=== PATIENT | female | born 1970 | race Two or more races ===

== ENCOUNTER 2019-04-17 09:52 | Emergency (ER) | payer OTHER ==
[~2019-04-17] VITALS: Ht 162.6 cm; Wt 99.8 kg
[2019-04-17 10:05] VITALS: BP 141/76
== END 2019-04-17 11:55 | disposition home or self-care (01) ==
LOC: ER 09:56
DX: J30.9 Allergic rhinitis, unspecified (principal); E11.9 Type 2 diabetes mellitus without complications; I10 Essential (primary) hypertension; Z88.0 Allergy status to penicillin; Z88.6 Allergy status to analgesic agent

== ENCOUNTER 2019-10-21 18:06 | Emergency (ER) | payer OTHER ==
[~2019-10-21] VITALS: Ht 160 cm; Wt 102.1 kg
[2019-10-21 19:12] LABS: Basophils # (auto) 0 10 ^3/uL (0-0.2); Basophils % (auto) 0.3 % (0.0-2.0); Eosinophils # (auto) 0.1 10 ^3/uL (0-0.8); Eosinophils % (auto) 1.4 % (0.0-7.0); Hematocrit 43.5 % (36.0-46.0); Hemoglobin 14.5 g/dL (12.2-16.2); Lymphocytes # (auto) 3.3 10 ^3/uL (0.4-5.4); Mean Corpuscular Hemoglobin 29.2 pg (28.0-32.0); Mean Corpuscular Hgb Conc. 33.4 g/dL (32.0-36.0); Mean Corpuscular Volume 87.4 fL (80.0-100.0); Monocytes # (auto) 0.5 10 ^3/uL (0-1.3); Monocytes % (auto) 5.6 % (0.0-12.0); Neutrophils # (auto) 4.8 10 ^3/uL (1.6-8.6); Neutrophils % (auto) 54.7 % (37.0-80.0); Nucleated Red Blood Cells % 0.1 %; Platelet Count (auto) 241 10^3/uL (140-450); Red Blood Cells 4.98 10^6/uL (4.0-5.20); Red Cell Distribution Width 13.9 % (11.8-14.3); White Blood Cell 8.7 10^3/uL (4.4-10.8)
[2019-10-21 19:20] LABS: Alanine Aminotransferase 48 U/L (13-56); Albumin 3.6 g/dL (3.4-5.0); Anion Gap 8 (5-15); Aspartate Aminotransferase 45 U/L (15-37); BUN/Creatinine Ratio 13.3; Blood Urea Nitrogen 13 mg/dL (7-18); Carbon Dioxide 23 mmol/L (21-32); Chloride 103 mmol/L (98-107); GFR African American 78 mL/min; GFR Non-African American 64 mL/min; Glucose 291 mg/dL (74-106); Potassium 4.2 mmol/L (3.5-5.1); Sodium 134 mmol/L (136-145)
[2019-10-21 19:25] LABS: Alkaline Phosphatase 100 U/L (45-117); Bilirubin, Total 0.4 mg/dL (0.2-1.0); Total Protein 7.9 g/dL (6.4-8.2)
[2019-10-21 19:33] LABS: Calcium 8.9 mg/dL (8.5-10.1)
[2019-10-21 20:25] VITALS: BP 137/88
== END 2019-10-21 20:57 | disposition home or self-care (01) ==
LOC: ER 18:06
DX: M71.21 Synovial cyst of popliteal space [Baker], right knee (principal); E11.65 Type 2 diabetes mellitus with hyperglycemia; M19.90 Unspecified osteoarthritis, unspecified site; E78.5 Hyperlipidemia, unspecified; I10 Essential (primary) hypertension; Z88.0 Allergy status to penicillin; Z88.6 Allergy status to analgesic agent
CPT/HCPCS: 36415; 71046; 80053; 83880; 84484; 85025; 85379; 93005; 93970

== ENCOUNTER 2020-04-08 09:38 | Emergency (ER) | payer OTHER ==
[~2020-04-08] VITALS: Ht 160 cm; Wt 95.3 kg
[2020-04-08 09:41] VITALS: BP 147/99
[2020-04-08] MEDS ORDERED: traMADol HCL 50 MG TAB PO ONE (11:00)
== END 2020-04-08 11:40 | disposition home or self-care (01) ==
LOC: ER 09:38
DX: R07.81 Pleurodynia (principal); M54.5 Low back pain; M54.6 Pain in thoracic spine; M79.18 Myalgia, other site; E11.9 Type 2 diabetes mellitus without complications; E78.5 Hyperlipidemia, unspecified; I10 Essential (primary) hypertension; Z88.0 Allergy status to penicillin; Z88.6 Allergy status to analgesic agent; W18.2XXA Fall in (into) shower or empty bathtub, initial encounter; Y93.89 Activity, other specified; Y92.89 Other specified places as the place of occurrence of the external cause; Y99.8 Other external cause status
CPT/HCPCS: 71101; 72070; 72100

== ENCOUNTER 2020-09-09 12:02 | Emergency (ER) | payer OTHER ==
[~2020-09-09] VITALS: Ht 162.6 cm; Wt 97.5 kg
[2020-09-09 12:06] VITALS: BP 149/79
[2020-09-09] MEDS ORDERED: SODIUM CHLORIDE 0.9% 1,000 ML IV ONE (12:30)
[2020-09-09 13:17] LABS: Basophils # (auto) 0.1 10 ^3/uL (0-0.2); Eosinophils # (auto) 0.1 10 ^3/uL (0-0.8); Eosinophils % (auto) 1.2 % (0.0-7.0); Hematocrit 44.9 % (36.0-46.0); Hemoglobin 14.9 g/dL (12.2-16.2); Lymphocytes # (auto) 3.2 10 ^3/uL (0.4-5.4); Lymphocytes % (auto) 27.3 % (10.0-50.0); Mean Corpuscular Hemoglobin 29.4 pg (28.0-32.0); Mean Corpuscular Hgb Conc. 33.2 g/dL (32.0-36.0); Mean Corpuscular Volume 88.7 fL (80.0-100.0); Monocytes # (auto) 0.7 10 ^3/uL (0-1.3); Monocytes % (auto) 6.1 % (0.0-12.0); Neutrophils # (auto) 7.5 10 ^3/uL (1.6-8.6); Neutrophils % (auto) 64.4 % (37.0-80.0); Nucleated Red Blood Cells % 0.2 %; Red Blood Cells 5.06 10^6/uL (4.0-5.20); Red Cell Distribution Width 14.8 % (11.8-14.3); White Blood Cell 11.6 10^3/uL (4.4-10.8)
[2020-09-09 13:30] LABS: Albumin 3.3 g/dL (3.4-5.0); Calcium 9.2 mg/dL (8.5-10.1)
[2020-09-09 13:34] LABS: BUN/Creatinine Ratio 20.5; Bilirubin, Total 0.4 mg/dL (0.2-1.0); Total Protein 8.4 g/dL (6.4-8.2)
[2020-09-09 13:37] LABS: Potassium 4.1 mmol/L (3.5-5.1)
[2020-09-09 15:23] LABS: Urine Bacteria NONE SEEN /hpf (None Seen); Urine Blood 1+ /uL (Negative); Urine Mucus FEW (None Seen); Urine WBC 4 /hpf (0 - 5)
== END 2020-09-09 15:01 | disposition home or self-care (01) ==
LOC: ER 12:02
DX: R10.11 Right upper quadrant pain (principal); R10.12 Left upper quadrant pain; R11.2 Nausea with vomiting, unspecified; E11.9 Type 2 diabetes mellitus without complications; E78.5 Hyperlipidemia, unspecified; I10 Essential (primary) hypertension; Z88.0 Allergy status to penicillin; Z88.6 Allergy status to analgesic agent
CPT/HCPCS: 36415; 74176; 80053; 81001; 85025

== ENCOUNTER 2020-11-08 19:00 | Emergency (ER) | payer OTHER ==
[~2020-11-08] VITALS: Ht 160 cm; Wt 99.8 kg
[2020-11-08 21:30] VITALS: BP 136/75
== END 2020-11-09 00:20 | disposition home or self-care (01) ==
LOC: ER 19:00
DX: S86.811A Strain of other muscle(s) and tendon(s) at lower leg level, right leg, initial encounter (principal); M13.861 Other specified arthritis, right knee; E11.9 Type 2 diabetes mellitus without complications; I10 Essential (primary) hypertension; E78.5 Hyperlipidemia, unspecified; Z88.0 Allergy status to penicillin; Z88.5 Allergy status to narcotic agent; V49.49XA Driver injured in collision with other motor vehicles in traffic accident, initial encounter; Y93.89 Activity, other specified; Y92.488 Other paved roadways as the place of occurrence of the external cause; Y99.8 Other external cause status
CPT/HCPCS: 73562

== ENCOUNTER 2023-12-17 10:16 | Emergency (ER) | payer MEDICAID, OTHER ==
[~2023-12-17] VITALS: Ht 160 cm; Wt 98.5 kg
--- NOTE | 2023-12-17 10:48 | ED.PDOC ---
GI ASSESSMENT HPI Comments HPI: Poor Historian. 53 y.o female presents to the ED for a chief complaint of upper abdominal pain associated with clear fluid vaginal discharge. Patient reports last menstrual cycle was one year ago, took a test around July 2023 which came out negative, went to see her PCP after and was referred to [facility] where she had an ultrasound done. Patient claims she is 9 months and states last night "her water broke" and is still having water discharge today associated with the abdominal pain. Patient was then seen by another doctor yesterday and was scheduled outpatient for lab work and a pelvic transvaginal ultrasound. At this time, patient denies any vaginal bleeding, fever, chills, nausea, or vomiting. Vital signs: BP: 164/92 HR: 90 Temp: 98.5 SPO2: 98% RA RR: 18 Patient reports allergies to codeine and penicillins Past medical history: HTN, hyperlipidemia, DM, and arthritis Past surgical history: Tummy tuck and 2 right knee sx REVIEW OF SYSTEMS: CONSTITUTIONAL: Denies acute: fever, diaphoresis, chills, generalized weakness. HEAD: Denies acute: headache, photophobia Eyes: Denies acute: Double vision, vision loss, eye pain, eye discharge. EARS: Denies acute: tinnitus, hearing loss, ear discharge, ear pain, THROAT: Denies acute: sore throat, swelling, difficulty swallowing , pain with swallowing, change in voice. NECK: Denies acute: neck pain, neck swelling, stiff neck. HEART: Denies acute : chest pain, palpitations, LUNGS: Denies acute: SOB, wheezing, cough, hemoptysis ABDOMEN: Denies acute: Nausea, Vomiting, diarrhea, melena , hematemesis, hematochezia SKIN: Denies acute: rash, redness, lesions, itchiness. EXTREMITIES: Denies acute: calf pain, numbness, tingling, weakness, denies pain in extremity. Denies acute: Low back pain. Neuro: Denies acute: focal neurological deficit, motor or sensory focal neurological deficit, tremors, seizure like activity, confusion, dizziness, change in mental status, loss of bowel or bladder function, cauda equina like symptoms. : Denies acute: dysuria, hematuria, flank pain, increase in urinary frequency. PSYCH: Denies acute: hallucination, suicidal ideation, homicidal ideation. FEMALE: Denies acute: abnormal vaginal bleeding, foul odor, PHYSICAL EXAM: General: no acute distress, awake and alert. Head: normocephalic, atraumatic. Neck: supple, trachea is midline, no swelling. Throat: Normal phonation. Eyes:, no erythema, no purulent discharge, no proptosis, no icterus. Heart: regular rate, regular rhythm, no significant murmur appreciated. Lungs: no apparent respiratory distress, Able to speak in full sentences. No wheezing, no rhonchi, no crackles. No stridors Clear to auscultation bilaterally. Abdomen: Generalized tender to palpation, non distended, soft, no guarding, no rebound, + bowel sounds. Obese Neuro: Awake, Alert, oriented to name, self, situation, follows commands GCS=15. Speech is normal. Skin: no petechia, no purpura, no cyanosis, non-pale, not jaundice. Lower extremities: --no - Pitting edema no deformity, no focal swelling, no calf TTP. Makes eye contact. moves all four extremities. Face: no apparent facial droop. Ambulating in the ED independently. Chief Complaint: Abdominal Pain Time Seen by MD: 10:25 Primary Care Provider: PAGET Reviewed Notes: Nurses Notes, Medications, Allergies Allergies: Coded Allergies: Codeine (Verified Allergy, Unknown, 04/17/19) Penicillins (Verified Allergy, Unknown, 04/17/19) Home Meds Active Scripts Nitrofurantoin Monohydrate Mac (Macrobid) 100 Mg Cap, 100 MG PO BID for 7 Days, #14 CAP Prov:AXEL FERNÁNDEZ DO 12/17/23 Information Source: Patient Mode of Arrival: Ambulatory Timing: Came on: Gradually Duration: Since onset Past Medical History PAST MEDICAL HISTORY: Arthritis, DM, High Lipids, HTN Surgical History (Other): Tummy tuck and 2 right knee sx LIVESTOCK NUTRITIONIST History: No Pertinent LIVESTOCK NUTRITIONIST History Family History Family History: Family hx of DM, Family hx of HTN Social History Smoker: Non-Smoker Alcohol: Denies ETOH Use Drugs: Denies Drug Use Lives In: Home Was a procedure done? Was a procedure done?: No GI differential Dx Differential Diagnosis: Esophagitis, Gastroenteritis, Inflammatory BD, UTI, Electrolyte Imbalance, , Viral, Other (DDX include Diverticulitis, colitis, gastroenteritis, acute abdomen, SBO, enteritis, constipation, volvulus, appendicitis, Gallbladder disease, choledocolithiasis, ascending cholangitis, pancreatitis, intraAbdominal mass/neoplasm, hepatitis, UTI, pylonephritis, kidney stone, aneurysm, dissection, Inflammatory bowel disease, gastroparesis, ischemic bowel, ovarian torsion, ovarian cyst/mass, tubo-ovarian abscess, , ectopic , PID, STD.) X-Ray, Labs, Meds, VS Vital Signs Date Time Temp Pulse Resp B/P (MAP) Pulse Ox O2 Delivery O2 Flow Rate FiO2 12/17/23 16:51 98.1 86 20 136/62 (86) 98 98.1 12/17/23 16:00 98.1 86 20 136/62 (86) 98 98.1 12/17/23 14:09 91 18 98 Room Air* 0 21 12/17/23 14:07 91 142/79 (100) 98 12/17/23 10:30 98.0 90 18 164/92 (116) 98 Lab Test 12/17/23 10:54 12/17/23 10:39 Range/Units White Blood Count 8.5 4.4-10.8 10^3/uL Red Blood Count 4.96 4.0-5.20 10^6/uL Hemoglobin 14.5 12.2-16.2 g/dL Hematocrit 44.5 36.0-46.0 % Mean Corpuscular Volume 89.7 80.0-100.0 fL Mean Corpuscular Hemoglobin 29.3 28.0-32.0 pg Mean Corpuscular Hemoglobin Concent 32.6 32.0-36.0 g/dL Red Cell Distribution Width 14.5 H 11.8-14.3 % Platelet Count 212 140-450 10^3/uL Mean Platelet Volume 10.2 6.9-10.8 fL Neutrophils (%) (Auto) 59.6 37.0-80.0 % Lymphocytes (%) (Auto) 31.9 10.0-50.0 % Monocytes (%) (Auto) 6.1 0.0-12.0 % Eosinophils (%) (Auto) 1.5 0.0-7.0 % Basophils (%) (Auto) 0.9 0.0-2.0 % Neutrophils # (Auto) 5.1 1.6-8.6 10 ^3/uL Lymphocytes # (Auto) 2.7 0.4-5.4 10 ^3/uL Monocytes # (Auto) 0.5 0-1.3 10 ^3/uL Eosinophils # (Auto) 0.1 0-0.8 10 ^3/uL Basophils # (Auto) 0.1 0-0.2 10 ^3/uL Nucleated Red Blood Cells 0.1 % Sodium Level 136 136-145 mmol/L Potassium Level 4.0 3.5-5.1 mmol/L Chloride Level 103 98-107 mmol/L Carbon Dioxide Level 24 20-31 mmol/L Anion Gap 9 5-15 Blood Urea Nitrogen < 5 L 9-23 mg/dL Creatinine 0.93 0.550-1.02 mg/dL Glomerular Filtration Rate Calc 73 >90 mL/min BUN/Creatinine Ratio 5.4 L 10.0-20.0 Serum Glucose 343 H 74-106 mg/dL Calcium Level 10.1 8.7-10.4 mg/dL Total Bilirubin 0.4 0.2-1.0 mg/dL Aspartate Amino Transferase (AST) 33 13-40 U/L Alanine Aminotransferase (ALT) 40 7-40 U/L Alkaline Phosphatase 136 H 46-116 U/L Total Protein 7.7 5.7-8.2 g/dL Albumin 4.3 3.2-4.8 g/dL Beta HCG, Quantitative 0.8 L 1.5-4.2 mIU/mL Urine Color Light-yellow Yellow Urine Clarity Clear Clear Urine pH 5.5 5.0-9.0 Urine Specific [place] 1.034 1.001-1.035 Urine Protein Negative Negative Urine Ketones Negative Negative Urine Blood Negative Negative /uL Urine Nitrite Negative Negative Urine Bilirubin Negative Negative Urine Urobilinogen Normal Negative mg/dL Urine Leukocyte Esterase Negative Negative /uL Urine RBC 1 0 - 4 /hpf Urine WBC 11 0 - 5 /hpf Urine Squamous Epithelial Cells Few <5 /hpf Urine Bacteria Few H None Seen /hpf Urine Hyaline Casts Few 0 - 2 /lpf Urine Mucus Few None Seen Urine Glucose 4+ H Normal mg/dL Current Medications Medications (Trade) Dose Ordered Sig/Nena Route Start Time Stop Time Status Last Admin Acetaminophen (Tylenol Tablet) 650 mg ONCE ONCE PO 12/17/23 14:15 12/17/23 14:16 DC 12/17/23 14:[address] [address] Ph: [phone] DIAGNOSTIC IMAGING Diagnostic Imaging Report : [id number] Signed PATIENT: LORRIE MCGRAW ACCT: [id number] UNIT: [id number] : 1970 LOC: ER ROOM / BED: / AGE / SEX: 53 / F ADM STATUS: REG ER SERVICE 1150 ORDERING PHYSICIAN: AXEL FERNÁNDEZ DO PROCEDURE(s): PELUS - PELVIC REASON: AMENORRHEA, PT STATES HER "WATER BROKE" ORDER NUMBER(s): [id number], ACCESSION NUMBER(s): [id number] CLINICAL HISTORY: Amenorrhea for 1 year. COMPARISON: None TECHNIQUE: Transvaginal and transabdominal grayscale sonographic imaging of the uterus and ovaries was performed, assisted by color Doppler technique. Duplex Doppler ultrasound of both ovaries was also performed. FINDINGS: The uterus measures 7.5 x 4.6 x 5.0 cm. There is heterogeneous echogenicity. Endometrial thickness measures 0.4 cm, within normal limits. Hypoechoic structure at the body of the uterus, possible fibroid measuring up to 2.2 cm in greatest dimension. Right ovary is not visualized. Left ovary measures 1.8 x 1.5 x 2.2 cm. Arterial and venous blood flow demon strated. IMPRESSION: 1. Heterogeneous uterus, possible fibroid at the body of the uterus. MRI could be obtained to further characterize if clinically indicated. 2. Right ovary is not able to be visualized, likely obscured by bowel gas. Unremarkable sonographic appearance of the left ovary. ATED BY: CAN GAINES DO DICTATED DATE/TIME: 12/17/23 1254 SIGNED BY: CAN GAINES DO SIGNED DATE/TIME: 12/17/23 125 CC: [address] [address] Ph: [phone] DIAGNOSTIC IMAGING Diagnostic Imaging Report : [id number] Signed PATIENT: LORRIE MCGRAW ACCT: [id number] UNIT: [id number] : 1970 LOC: ER ROOM / BED: / AGE / SEX: 53 / F ADM STATUS: REG ER SERVICE 1402 ORDERING PHYSICIAN: AXEL FERNÁNDEZ DO PROCEDURE(s): ABPL - CT AB PEL WO CON-NO ORAL OR IV REASON: abd pain ORDER NUMBER(s): [id number], ACCESSION NUMBER(s): [id number] CLINICAL INFORMATION: 53 years old, Female; abd pain. TECHNIQUE: Axial CT images of the abdomen and pelvis were obtained without IV contrast. Coronal and sagittal reformatted images were obtained, reviewed, and stored. Evaluation of the parenchymal organs is limited without IV contrast. Evaluation of the bowel and mesentery is limited without oral contrast. All CT scans at this medical facility are performed using dose modulation techniques as appropriate to a performed exam including the following: Automated exposure control was utilized; adjustment of the MA and/or KV according to patient size; and use of iterative reconstruction technique. CTDIvol = 24.22 mGy DLP = 1131.43 mGy-cm COMPARISON: CT ABD PELVIS WO CONTRAST on DOS: 09/09/20 FINDINGS: Motion artifact limits evaluation. Lung bases: Lung bases are clear. Liver: Hepatic steatosis with areas of focal fatty sparing. Biliary: No calcified gallstones or biliary ductal dilatation. Spleen: Unremarkable. Pancreas: Grossly unremarkable in its noncontrast enhanced appearance. Adrenal glands: Unremarkable. No mass. Kidneys: No hydronephrosis. No renal or ureteral calculi. Aorta/Vascular: Mild atherosclerotic calcification. No abdominal aortic aneurysm. Retroperitoneum: No mass or lymphadenopathy. Bowel/mesentery: No small bowel obstruction. Appendix is visualized and appears unremarkable. Scattered small colonic diverticula without adjacent inflammatory changes to suggest diverticulitis. Pelvic organs: Grossly unremarkable. Bladder: Unremarkable. No mass. Abdominal wall: No mass or hernia. Bones: No acute fracture or suspicious intraosseous lesion. IMPRESSION: 1. Hepatic steatosis. 2. Colonic diverticulosis with no CT evidence for diverticulitis. 3. Additional nonacute findings as detailed above. ATED BY: CAN GAINES DO DICTATED DATE/TIME: 12/17/23 1440 SIGNED BY: CAN GAINES DO SIGNED DATE/TIME: 12/17/23 144 CC: Time of 1ST Reevaluation: 11:02 Reevaluation 1ST: Unchanged Patient Education/Counseling: Diagnosis, Treatment Family Education/Counseling: No Family Present Comments Patient presented with the above HPI.--abdominal pain----workup was initiated. patient was found with the above mentioned diagnosis. Patient ED course and VS have been stabilized. Patient has been reassessed in the ED and remained in a stable condition. Pertinent incidental findings were discussed with the patient and/or family. Patient/family voices understanding and is agreeable with plan. Patient has been observed in the ED adequate length of time to insure improvement/stability. patient was discharged home in a stable condition. All the reports of any imaging studies that were ordered by myself were reviewed by myself. Departure 1 Departure Time of Disposition: 16:05 Impression: Primary Impression: Nonspecific abdominal pain Additional Impressions: UTI (urinary tract infection) Uterine fibroid Disposition: 01 HOME / SELF CARE / HOMELESS Condition: Stable Additional Instructions: Additional discharge instructions: You MUST follow-up with your primary care/family doctor in 1 to 2 days. If you are unable to see your primary care/family doctor, please return to our emergency room for re-assessment and re-evaluation in 1 to 2 days. Return to the emergency room here in our facility or to the nearest ER [facility] if your symptoms change or worsen. CONSULTATIONS: you MUST Follow-up for consultation as soon as possible with: Dr. ELIZABETH Odonnell doctor in 1-2 days and gastroenterology in 1-2 days. Please call for appointment. You MUST call the consultants office yourself to make an appointment. You may need to arrange that through your insurance and/or your primary/family doctor. If you are unable to see the senior consumer insights consultant in 1 to 2 days, you must return to our emergency room (or any other ER of your choice) for re-assessment and re- evaluation. Adequate fluid hydration. Below is a copy of your radiological report for follow up: [address] [address] Ph: [phone] DIAGNOSTIC IMAGING Diagnostic Imaging Report : [id number] Signed PATIENT: LORRIE MCGRAW ACCT: [id number] UNIT: [id number] : 1970 LOC: ER ROOM / BED: / AGE / SEX: 53 / F ADM STATUS: REG ER SERVICE 1150 ORDERING PHYSICIAN: AXEL FERNÁNDEZ DO PROCEDURE(s): PELUS - PELVIC REASON: AMENORRHEA, PT STATES HER "WATER BROKE" ORDER NUMBER(s): [id number], ACCESSION NUMBER(s): [id number] CLINICAL HISTORY: Amenorrhea for 1 year. COMPARISON: None TECHNIQUE: Transvaginal and transabdominal grayscale sonographic imaging of the uterus and ovaries was performed, assisted by color Doppler technique. Duplex Doppler ultrasound of both ovaries was also performed. FINDINGS: The uterus measures 7.5 x 4.6 x 5.0 cm. There is heterogeneous echogenicity. Endometrial thickness measures 0.4 cm, within normal limits. Hypoechoic structure at the body of the uterus, possible fibroid measuring up to 2.2 cm in greatest dimension. Right ovary is not visualized. Left ovary measures 1.8 x 1.5 x 2.2 cm. Arterial and venous blood flow demonstrated. IMPRESSION: 1. Heterogeneous uterus, possible fibroid at the body of the uterus. MRI could be obtained to further characterize if clinically indicated. 2. Right ovary is not able to be visualized, likely obscured by bowel gas. Unr emarkable sonographic appearance of the left ovary. ATED BY: CAN GAINES DO DICTATED DATE/TIME: 12/17/23 1254 SIGNED BY: CAN GAINES DO SIGNED DATE/TIME: 12/17/23 1254 CC: [place] [address] Ph: [phone] DIAGNOSTIC IMAGING Diagnostic Imaging Report : [id number] Signed PATIENT: LORRIE MCGRAW ACCT: [id number] UNIT: [id number] : 1970 LOC: ER ROOM / BED: / AGE / SEX: 53 / F ADM STATUS: REG ER SERVICE 1405 ORDERING PHYSICIAN: AXEL FERNÁNDEZ DO PROCEDURE(s): ABPL - CT AB PEL WO CON-NO ORAL OR IV REASON: abd pain ORDER NUMBER(s): [id number], ACCESSION NUMBER(s): [id number] CLINICAL INFORMATION: 53 years old, Female; abd pain. TECHNIQUE: Axial CT images of the abdomen and pelvis were obtained without IV contrast. Coronal and sagittal reformatted images were obtained, reviewed, and stored. Evaluation of the parenchymal organs is limited without IV contrast. Evaluation of the bowel and mesentery is limited without oral contrast. All CT scans at this medical facility are performed using dose modulation techniques as appropriate to a performed exam including the following: Automated exposure control was utilized; adjustment of the MA and/or KV according to patient size; and use of iterative reconstruction technique. CTDIvol = 24.22 mGy DLP = 1131.43 mGy-cm COMPARISON: CT ABD PELVIS WO CONTRAST on DOS: 09/09/20 FINDINGS: Motion artifact limits evaluation. Lung bases: Lung bases are clear. Liver: Hepatic steatosis with areas of focal fatty sparing. Biliary: No calcified gallstones or biliary ductal dilatation. Spleen: Unremarkable. Pancreas: Grossly unremarkable in its noncontrast enhanced appearance. Adrenal glands: Unremarkable. No mass. Kidneys: No hydronephrosis. No renal or ureteral calculi. Aorta/Vascular: Mild atherosclerotic calcification. No abdominal aortic aneurysm. Retroperitoneum: No mass or lymphadenopathy. Bowel/mesentery: No small bowel obstruction. Appendix is visualized and appears unremarkable. Scattered small colonic diverticula without adjacent inflammatory changes to suggest diverticulitis. Pelvic organs: Grossly unremarkable. Bladder: Unremarkable. No mass. Abdominal wall: No mass or hernia. Bones: No acute fracture or suspicious intraosseous lesion. IMPRESSION: 1. Hepatic steatosis. 2. Colonic diverticulosis with no CT evidence for diverticulitis. 3. Additional nonacute findings as detailed above. ATED BY: CAN GAINES DO DICTATED DATE/TIME: 12/17/23 1440 SIGNED BY: CAN GAINES DO SIGNED DATE/TIME: 12/17/23 1440 CC: e-Prescriptions Nitrofurantoin Monohydrate Mac (Macrobid) 100 Mg Cap 100 MG PO BID for 7 Days, #14 CAP Prov: AXEL FERNÁNDEZ DO 12/17/23 Nitrofurantoin Monohydrate Mac (Macrobid) 100 Mg Cap 100 MG PO BID for 7 Days, #14 CAP Prov: AXEL FERNÁNDEZ DO 12/17/23 Discharged With: Self Critical Care Note Critical Care Time?: No I personally scribed for AXEL FERNÁNDEZ DO (DVFARMI) on 12/17/23 at 10:48. Electronically submitted by Mary Michael ([facility]). I personally scribed for AXEL FERNÁNDEZ DO (DVFARMI) on 12/17/23 at 11:08. Electronically submitted by Mary Michael ([facility]). I personally scribed for AXEL FERNÁNDEZ DO (DVFARMI) on 12/17/23 at 15:09. Electronically submitted by Mary Michael ([facility]). I personally scribed for AXEL FERNÁNDEZ DO (DVFARMI) on 12/17/23 at 16:07. Electronically submitted by Mary Michael ([facility]). AXEL FERNÁNDEZ DO Dec 17, 2023 10:48
[2023-12-17 11:19] LABS: Basophils # (auto) 0.1 10 ^3/uL (0-0.2); Basophils % (auto) 0.9 % (0.0-2.0); Eosinophils # (auto) 0.1 10 ^3/uL (0-0.8); Eosinophils % (auto) 1.5 % (0.0-7.0); Hematocrit 44.5 % (36.0-46.0); Hemoglobin 14.5 g/dL (12.2-16.2); Lymphocytes # (auto) 2.7 10 ^3/uL (0.4-5.4); Lymphocytes % (auto) 31.9 % (10.0-50.0); Mean Corpuscular Hemoglobin 29.3 pg (28.0-32.0); Mean Corpuscular Hgb Conc. 32.6 g/dL (32.0-36.0); Mean Corpuscular Volume 89.7 fL (80.0-100.0); Monocytes # (auto) 0.5 10 ^3/uL (0-1.3); Monocytes % (auto) 6.1 % (0.0-12.0); Neutrophils # (auto) 5.1 10 ^3/uL (1.6-8.6); Neutrophils % (auto) 59.6 % (37.0-80.0); Nucleated Red Blood Cells % 0.1 %; Platelet Count (auto) 212 10^3/uL (140-450); Red Blood Cells 4.96 10^6/uL (4.0-5.20); Red Cell Distribution Width 14.5 % (11.8-14.3); White Blood Cell 8.5 10^3/uL (4.4-10.8)
[2023-12-17 11:38] LABS: Alanine Aminotransferase 40 U/L (7-40); Albumin 4.3 g/dL (3.2-4.8); Alkaline Phosphatase 136 U/L (46-116); Anion Gap 9 (5-15); Aspartate Aminotransferase 33 U/L (13-40); Bilirubin, Total 0.4 mg/dL (0.2-1.0); Calcium 10.1 mg/dL (8.7-10.4); Carbon Dioxide 24 mmol/L (20-31); Chloride 103 mmol/L (98-107); Glucose 343 mg/dL (74-106); Sodium 136 mmol/L (136-145); Total Protein 7.7 g/dL (5.7-8.2)
[2023-12-17 11:43] LABS: BUN/Creatinine Ratio 5.4 (10.0-20.0); Blood Urea Nitrogen < 5 mg/dL (9-23)
[2023-12-17 12:25] LABS: Urine Bacteria FEW /hpf (None Seen); Urine Blood Negative /uL (Negative); Urine Clarity Clear (Clear); Urine Color Light-Yellow (Yellow); Urine Hyaline Cast FEW /lpf (0 - 2); Urine Mucus FEW (None Seen); Urine Protein, UAD Negative (Negative); Urine Specific Gravity 1.034 (1.001-1.035); Urine Urobilinogen Normal (Negative); Urine WBC 11 /hpf (0 - 5); Urine pH 5.5 (5.0-9.0)
--- NOTE | 2023-12-17 12:57 | DVH ---
CLINICAL HISTORY: Amenorrhea for 1 year. COMPARISON: None TECHNIQUE: Transvaginal and transabdominal grayscale sonographic imaging of the uterus and ovaries wa s performed, assisted by color Doppler technique. Duplex Doppler ultrasound of both ovaries was also performed. FINDINGS: The uterus measures 7.5 x 4.6 x 5.0 cm. There is heterogeneous echogenicity. Endometrial th ickness measures 0.4 cm, within normal limits. Hypoechoic structure at the body of the uterus, possib le fibroid measuring up to 2.2 cm in greatest dimension. Right ovary is not visualized. Left ovary measures 1.8 x 1.5 x 2.2 cm. Arterial and venous blood flow demonstrated. IMPRESSION: 1. Heterogeneous uterus, possible fibroid at the body of the uterus. MRI could be obtained to furthe r characterize if clinically indicated. 2. Right ovary is not able to be visualized, likely obscured by bowel gas. Unremarkable sonographic a ppearance of the left ovary.
[2023-12-17 14:09] VITALS: PULSE 91; RESP 18; O2SAT 98
[2023-12-17] MEDS: ACETAMINOPHEN 325 MG TAB PO ONE (14:27)
--- NOTE | 2023-12-17 14:43 | DVH ---
CLINICAL INFORMATION: 53 years old, Female; abd pain. TECHNIQUE: Axial CT images of the abdomen and pelvis were obtained without IV contrast. Coronal and sagittal reformatted images were obtained, reviewed, and stored. Evaluation of the parenchymal organs is limited without IV contrast. Evaluation of the bowel and mesentery is limited without oral contra st. All CT scans at this medical facility are performed using dose modulation techniques as appropria te to a performed exam including the following: Automated exposure control was utilized; adjustment o f the MA and/or KV according to patient size; and use of iterative reconstruction technique. CTDIvol = 24.22 mGy DLP = 1131.43 mGy-cm COMPARISON: CT ABD PELVIS WO CONTRAST on DOS: 09/09/20 FINDINGS: Motion artifact limits evaluation. Lung bases: Lung bases are clear. Liver: Hepatic steatosis with areas of focal fatty sparing. Biliary: No calcified gallstones or biliary ductal dilatation. Spleen: Unremarkable. Pancreas: Grossly unremarkable in its noncontrast enhanced appearance. Adrenal glands: Unremarkable. No mass. Kidneys: No hydronephrosis. No renal or ureteral calculi. Aorta/Vascular: Mild atherosclerotic calcification. No abdominal aortic aneurysm. Retroperitoneum: No mass or lymphadenopathy. Bowel/mesentery: No small bowel obstruction. Appendix is visualized and appears unremarkable. Scatte red small colonic diverticula without adjacent inflammatory changes to suggest diverticulitis. Pelvic organs: Grossly unremarkable. Bladder: Unremarkable. No mass. Abdominal wall: No mass or hernia. Bones: No acute fracture or suspicious intraosseous lesion. IMPRESSION: 1. Hepatic steatosis. 2. Colonic diverticulosis with no CT evidence for diverticulitis. 3. Additional nonacute findings as detailed above.
[2023-12-17] MEDS ORDERED: NITR-87 PO (16:07)
[2023-12-17 16:51] VITALS: BP 136/62; PULSE 86; RESP 20; TEMP 98.1; O2SAT 98
== END 2023-12-17 16:51 | disposition home or self-care (01) ==
LOC: ER 10:16
DX: D25.9 Leiomyoma of uterus, unspecified (principal); R10.2 Pelvic and perineal pain; N39.0 Urinary tract infection, site not specified; R10.9 Unspecified abdominal pain; I10 Essential (primary) hypertension; E11.9 Type 2 diabetes mellitus without complications; E78.5 Hyperlipidemia, unspecified; M19.90 Unspecified osteoarthritis, unspecified site; Z98.890 Other specified postprocedural states; Z88.5 Allergy status to narcotic agent; Z88.0 Allergy status to penicillin; Z79.899 Other long term (current) drug therapy
CPT/HCPCS: 36415; 74176; 76830; 76856; 80053; 81001; 84702; 85025